=== PATIENT | female | born 1965 | race African-American/Black ===

== ENCOUNTER 2019-12-08 12:15 | Inpatient (IN) ==
[2019-12-08] MEDS ORDERED: HUMULIN R IV ONE (12:25)
[2019-12-08] MEDS ORDERED: NS 1,000 ML IV ONE ×2 (12:25→14:06)
[2019-12-08] MEDS ORDERED: HUMULIN R (PARKWAY) ONE (12:45)
[2019-12-08 12:48] LABS: BASO# 0.03 X1000 (0.0-0.2); BASO% 0.3 % (0.0-0.8); EOS# 0.17 X1000 (0.0-0.7); EOS% 1.7 % (0.0-10.0); HEMATOCRIT 33.8 % (37.0-47.0); HEMOGLOBIN 10.7 g/dL (12.0-16.0); IMM GRAN# 0.03 X1000 (0.0-0.04); IMM GRAN% 0.3 % (0.0-0.5); LYMPH# 3.48 X1000 (1.2-3.4); LYMPH% 35.7 % (20.5-51.1); MCHC 31.7 g/dL (33-37); MCV 85.1 FL (81-99); MONO# 1.39 X1000 (0.11-0.59); MONO% 14.3 % (1.7-9.3); MPV 11.1 FL (7.4-10.4); NEUT# 4.64 X1000 (1.4-6.5); NEUT% 47.7 % (42.2-75.2); PLT 285 X1000 (130-400); RBC 3.97 XMIL (4.2-5.4); RDW 14.7 % (11.5-14.5); WBC 9.74 X1000 (4.8-10.8)
--- NOTE | 2019-12-08 13:08 | Diag Imaging Result Doc PS360 ---
EXAM: CHEST-PORTABLE - 12/08/2019 HISTORY: SYNCOPE,VOMITING TECHNIQUE: Portable chest COMPARISON: 10/02/2019 FINDINGS: There is mild cardiomegaly similar to prior. Inspiration is mildly shallow. The lungs appear clear. There is no pleural effusion or pneumothorax identified. IMPRESSION: Mild cardiomegaly. Mildly shallow inspiration. No other evidence of acute disease. Electronically signed by Steve Pineda 12/08/2019 1:05 PM
[2019-12-08 13:18] LABS: INR 0.95; PROTIME 13.1 Seconds (11.0-16.0); PTT 35.5 Seconds (22.3-41.8)
[2019-12-08 13:22] LABS: ALBUMIN 3.6 g/dL (3.5-5.0); CALCIUM 8.9 mg/dL (8.8-10.2); CREATININE 1.4 mg/dL (0.5-0.9); POTASSIUM 3.8 mmol/L (3.5-5.1); TOTAL BILIRUBIN 0.3 mg/dL (0.20-1.00); TOTAL PROTEIN 7.1 g/dL (6.3-8.3)
[2019-12-08 14:24] LABS: URINE SOURCE CLEAN CATCH
[2019-12-08 14:34] LABS: BE -4.7 mmoll (-2.0-2.0); BLOOD TYPE VENOUS; HCO3-(ACT) 19.1 mmoll (22-27); PCO2(98.6) 62 mmHg (40-60); PO2(98.6) 22 mmHg (30-55); SAMPLE BLOOD; SAO2 37.1 % (40.0-85.0); pH(98.6) 7.21 (7.32-7.43)
[2019-12-08 14:58] LABS: UR AMPHETAMINES QUAL NONE DETECTED (NONE DETECT); UR BARBITUATES QUAL NONE DETECTED (NONE DETECT); UR BENZODIAZEPIN QUAL NONE DETECTED (NONE DETECT); UR CANNABINOIDS QUAL NONE DETECTED (NONE DETECT); UR COCAINE QUAL NONE DETECTED (NONE DETECT); UR METHADONE QUAL NONE DETECTED (NONE DETECT); UR METHAMPHETAMINE QUAL NONE DETECTED (NONE DETECT); UR OPIATES QUAL NONE DETECTED (NONE DETECT); UR OXYCODONE QUAL NONE DETECTED (NONE DETECT); UR PCP QUAL NONE DETECTED (NONE DETECT); UR PROPOXYPHENE QUAL NONE DETECTED (NONE DETECT); UR TCA QUAL NONE DETECTED (NONE DETECT)
--- NOTE | 2019-12-08 15:00 | Diag Imaging Result Doc PS360 ---
EXAM: CT HEAD W/O CONTRAST - 12/08/2019 HISTORY: syncope x 3 in 6 days. TECHNIQUE: CT head without contrast COMPARISON: 10/02/2019 FINDINGS: There is no evidence of intracranial hemorrhage, mass effect, midline shift, or hydrocephalus. There are mild chronic microvascular ischemic changes. There is no indication of recent infarct, although acute infarcts may not be immediately visible. There are atherosclerotic calcifications noted at the base of the brain. There is no evidence of skull fracture. Visualized portions of paranasal sinuses and mastoid air cells appear clear. IMPRESSION: No visible acute intracranial abnormality. No hemorrhage or mass effect. This exam was performed using automated exposure control, adjustment of mA or kV according to patient size, and/or use of iterative reconstruction technique. Electronically signed by Steve Pineda 12/08/2019 2:57 PM
[2019-12-08] MEDS ORDERED: APRESOLINE IV ONE ×2 (15:17→18:52)
[2019-12-08 15:18] LABS: BILIRUBIN URINE NEGATIVE (NEGATIVE); BLOOD URINE TRACE (NEGATIVE); COLOR YELLOW; GLUCOSE URINE >1000 mg/dL (NEGATIVE); KETONE URINE NEGATIVE (NEGATIVE); LEUKOCYTES URINE NEGATIVE (NEGATIVE); NITRITE URINE NEGATIVE (NEGATIVE); PH URINE 6.5; PROTEIN URINE 200 mg/dL (NEGATIVE); SP GRAVITY URINE 1.013; TURBIDITY URINE HAZY (CLEAR); UROBILINOGEN URINE NORMAL (NORMAL)
[2019-12-08 15:28] LABS: UR EPITHELIAL CELLS >10 /HPF (<10); URINE BACTERIA 2+ /HPF; URINE CRYSTALS URIC ACID PRESENT
[2019-12-08 15:30] LABS: URINE CASTS EPITHELIAL PRESENT; URINE RBC <10 /HPF (<10); URINE WBC <10 /HPF (<10); URINE YEAST NONE SEEN
--- NOTE | 2019-12-08 15:41 | PROVIDER DOCUMENTATION ---
This chart was entered by Marcelina Duke Scribe, acting as scribe for Arpit Lockett MD. HPI-General Adult - General Chief Complaint: Syncope Stated Complaint: confusion, syncope, HTN, hyperglycemia, vomiting Time Seen by Provider: 12/08/19 12:17 Source: patient, EMS Allergies/Adverse Reactions: Patient Allergies Allergy/AdvReac Type Severity Reaction Status Date / Time promethazine HCl * Allergy Unknown Verified 12/08/19 14:49 [From Phenergan] Home Medications: Home Medication List Medication Instructions Recorded Confirmed Last Taken Type Albuterol [Albuterol Neb] 1 vial INH Q6HR PRN 12/08/19 12/08/19 Unknown History Baclofen [Lioresal] 1 tab PO QHS 12/08/19 12/08/19 Unknown History Furosemide [Lasix] 1 tab PO DAILY 12/08/19 12/08/19 Unknown History Insulin NPH Hum/Reg Insulin Hm 1 unit SQ DIRECTED 12/08/19 12/08/19 Unknown History [Novolin 70-30 100 Unit/ml Vial] Lisinopril 1 tab PO DAILY 12/08/19 12/08/19 Unknown History Metoprolol [Lopressor] 1 tab PO DAILY 12/08/19 12/08/19 Unknown History Pregabalin 1 - 2 cap PO QHS 12/08/19 12/08/19 Unknown History - History of Present Illness -Gen Adult Nature of Presenting Problems: 54 y/o female with history of diabetes type II, hypertension, and CHF, presents to the ED via EMS with confusion, syncope, and hyperglycemia while at [facility]. EMS states blood sugar 477 and the patient began vomiting while being put on the stretcher and was given Zofran. EMS also states the patient was throwing her emesis around the truck and urinated on the stretcher en route. faMILY MEMBERS LATER TELL ME THIS IS 3RD WITNESS SYNCOPE IN 6 DAYS. PT ACTING NL AND AT [facility] BEFORE [facility]. Location of Pain/Injury: reports: generalized Onset/Duration: reports: just prior to arrival Timing: reports: still present Context/Activities at Onset: reports: light activity Associated Symptoms: reports: syncope, vomiting, other (confusion) Similar Symptoms Previously?: No Recently seen or treated by another doctor?: No Review of Systems - Adult - REVIEW OF SYSTEMS - ADULT Constitutional: denies: chills, fever, weight loss Eyes: reports: no symptoms reported Ears, Nose, Mouth & Throat: reports: no symptoms reported Cardiovascular: reports: no symptoms reported Respiratory: reports: no symptoms reported Gastrointestinal: reports: vomiting. denies: diarrhea, nausea Genitourinary: denies: dysuria, discharge, frequency Musculoskeletal: reports: no symptoms reported Integumentary: reports: no symptoms reported Neurological: reports: syncope, other (confusion). denies: slurred speech Psychiatric: reports: no symptoms reported Endocrine: reports: no symptoms reported Hematologic/Lymphatic: reports: no symptoms reported Allergic/Immunologic: reports: no symptoms reported All Other Systems: Reviewed and Negative Past History - Adult - PAST MEDICAL HISTORY-ADULT Review of Records: reports: Nursing Assessment Review, Medications Reviewed Major Childhood Illnesses: reports: denies history Cardiovascular: reports: CHF, HTN, hyperlipidemia, other (enlarged heart) Respiratory: reports: asthma, COPD Gastrointestinal: reports: GERD Obstetrical/Gynecological: reports: denies history Genitourinary: reports: denies history Musculoskeletal: reports: denies history Neurological: reports: denies history Endocrine/Immune: reports: Diabetes Other Conditions: reports: MRSA - PRIOR SURGERIES/PROCEDURES Surgical/Procedure History: reports: BTL, - PRIOR HOSPITALIZATIONS Prior Hospitalizations: reports: none - IMMUNIZATION STATUS Childhood Immunizations: See Nurse Assessment Flu Vaccine: See Nurse Assessment - FAMILY HISTORY Family History: reviewed, not pertinent - SOCIAL HISTORY Smoking: other (former smoker) Physical Exam-General - PHYSICAL EXAM-ADULT Initial Vital Signs Reviewed: Yes - CONSTITUTIONAL General Appearance: slow to respond - EYES Eyes: PERRL/EOMI - HEAD, EARS, NOSE, MOUTH & THROAT HENMT: normocephalic/atraumatic, moist mucous membranes - NECK Neck: full range of motion, supple - RESPIRATORY Respiratory: lungs clear, normal breath sounds. negative: accessory muscle use, rales, rhonchi, wheezing - CARDIOVASCULAR Cardiovascular: regular rate, rhythm, no gallop, no JVD, no murmur - GASTROINTESTINAL (ABDOMEN) Abdominal Exam: non tender, soft - MUSCULOSKELETAL Back Exam: normal inspection, no CVA tenderness, no vertebral tenderness - SKIN Integumentary: normal color, normal turgor, warm/dry - NEUROLOGIC Neurologic: marine biologist II-XII nml as tested, grossly normal, no motor/sensory deficits. negative: facial droop, focal weakness - PSYCHIATRIC Psych/Mental Status: other (ON INITIAL EXAM PT NEARLY OBTUNDED AND SLOW TO RESPOND BUT NOT COMBATIVE HERE HAD BEEN IN AMBULANCE. WITHIN 10 MINUTES , ABLE TO ANSWER A FEW QWUESTIONS AND COOPERATE WITH DONNING HER GOWN, WITHIN 45 MIN O X 3 AND AT HER MENTAL BASELINE. NEVER ANY FOCAL WEAKNESS OBSERVED.) Progress - PLAN OF CARE/RESULTS Progress/Plan/Lab Results: 1319: Lab called with lactic acid 4.7 as well as other critical abnormal labs. Result Diagrams: 12/08/19 12:35 12/08/19 12:35 - REASSESSMENT Reassessment #1 Time Reassessed: 14:04 (Family states the patient has had multiple recent falls including Monday (7 days ago) and then again on Monday (2 days ago) as well as today) Status: improving Reassessment Comment: The patient seems more alert. - EKG 1 Time of EKG reading by physician:: 14:26 EKG Read and Signed by:: Arpit Lockett EKG Interpretation (*Must complete 3 of following elements*): Abnormal Rate: 51 Rhythm: sinus bradycardia Treynor: left Comments: nonspecific T wave abnormality - XRAY 1 XRAY Study: Chest (EXAM: CHEST-PORTABLE - 12/08/2019 HISTORY: SYNCOPE,VOMITING TECHNIQUE: Portable chest COMPARISON: 10/02/2019 FINDINGS: There is mild cardiomegaly similar to prior. Inspiration is mildly shallow. The lungs appear clear. There is no pleural effusion or pneumothorax identified. IMPRESSION: Mild cardiomegaly. Mildly shallow inspiration. No other evidence of acute disease. Electronically signed by Steve Pineda 12/08/2019 1:05 PM) - CONSULTS/PCP/HOSPITALIST Notification #1 *Consult/PCP/Hospitalist*: DR ISAACS Time Discussed: 15:21 Consult Disposition: Admit Departure - Departure Date of Disposition Decision: 12/08/19 Time of Disposition Decision: 15:22 DIAGNOSIS: Syncope and collapse, DKA (diabetic ketoacidosis), Hypertension, AMS (altered mental status) Disposition: ADMITTED INPATIENT 09 Certified Medical Emergency: Emergent Condition: Fair Referrals and Follow-Ups: Eli Magallon CRNP [Primary Care Provider] - - Critical Care Note This patient required my direct & personal management of CC.: Yes Total Time (mins): 30 Critical Care Statement: This patient required my direct personal management to treat or rule out processes, the absence of which, could potentiallly result in sudden, clinically significant life or limb threatening deterioration. Attestation - Physician/ MITRA Attestation The physician spent face to face time with patient:: Yes Advanced Practice Provider documentation review:: Supervising physician onsite and consulted in the evaluation and care of this patient. The physician did have a face to face encounter with the patient. This chart was documented by the indicated scribe, (Marcelina Duke, Collin) and accurately reflects the services I performed and decisions made by me, Arpit Lockett MD, as attested by the provider's signature.
--- NOTE | 2019-12-08 16:56 | HISTORY AND PHYSICAL ---
PRIMARY CARE PHYSICIAN: SAHIL Mckinley. CHIEF COMPLAINT: Syncopal episode x3 over the past six days. The last one this morning during [facility]. HISTORY OF PRESENTING ILLNESS: This is a 54-year-old female who presents with increased confusion after a syncopal episode at [employer] this morning. States that she has had three total over the past six days. She had an elevated blood sugar when she arrived of 477 and states that she did not take her insulin sliding scale as prescribed. These syncopal episodes have been witnessed by family members. When she arrived, she had a blood pressure of 191/111, saturating 89% on room air. Her blood sugar was 414. Her creatinine was 1.4. Plasma lactate was 4.7. Urinalysis negative. Acetone level negative. Urine drug screen negative. Head CT showed no visible acute intracranial abnormality. No hemorrhage or mass effect. Chest x-ray showed mild cardiomegaly, but no other evidence of acute disease. So, she will be admitted for further evaluation and treatment. PAST MEDICAL HISTORY: Diabetes type 2, hypertension, CHF, hyperlipidemia, COPD, GERD. PAST SURGICAL HISTORY: and bilateral tubal ligation. FAMILY HISTORY: Reviewed and noncontributory. SOCIAL HISTORY: She is a former smoker. Denies any tobacco, alcohol or illicit drug use. ALLERGIES: Promethazine. HOME MEDICATIONS: She takes albuterol nebulizers every 6 hours p.r.n. Lioresal 10 mg one p.o. at bedtime, Lasix 40 mg p.o. daily, Novolin 70/30 per sliding scale, lisinopril 40 mg p.o. daily, metoprolol 50 mg p.o. daily, and Pregabalin 50 mg one two capsules by mouth at bedtime. We will give her the one capsule at bedtime. LABORATORY DATA: Showed a white blood cell count of 9.74, hemoglobin 10.7, hematocrit 33.8, platelets 285,000. PT/INR of 13.1 and 0.95. Venous ABG showed a pH of 7.21, pCO2 62, PO2 22, bicarb 19.1. Sodium 140, potassium 3.8, chloride 102, CO2 20, BUN of 20, creatinine 1.4, glucose 414, AST of 86, ALT 66, alkaline phosphate 189, plasma lactate of 4.7, free T4 of 1.16. Urinalysis was negative except for 2+ bacteria. Acetone was negative. Urine drug screen showed none detected. IMAGING: Head CT showed no visible acute intracranial abnormality. No hemorrhage or mass effect. Chest x-ray showed mild cardiomegaly. No other evidence of acute disease. REVIEW OF SYSTEMS: She denied any fever, chills, blurred vision. She did have some dizziness, confusion. Denied any chest pain, coughing, shortness of breath. Denied any abdominal pain, constipation, diarrhea, nausea, but she did vomit once in route and denies any burning or hurting with urination. PHYSICAL EXAMINATION: VITAL SIGNS: On arrival she had a temperature of 97.8 degrees, pulse 58, respirations 17, blood pressure 119/111, saturating 89% on room air. Currently saturating 97% on 2 L. GENERAL: This is a 54-year-old female who is lying in the bed and answers questions appropriately. HENT: Normocephalic, atraumatic. Normal ENT inspection. Oropharynx and nares are clear. EYES: Pupils are equal, round, reactive to light and accommodation. Extraocular movements are intact. NECK: Normal inspection normal range of motion. LUNGS: Clear to auscultation bilaterally with equal lung expansion, chest wall movement. HEART: Regular rate and rhythm. No murmurs, rubs, or gallops. ABDOMEN: Soft, nontender, nondistended. Bowel sounds are present x4 quadrants. MUSCULOSKELETAL: She has 5/5 strength x4 extremities. NEUROLOGICAL: The cranial nerves XX-XII appear grossly intact. ASSESSMENT: 1. Syncope. 2. Acute kidney injury. 3. Diabetes type 2, uncontrolled with hyperglycemia. 4. Hypertension. 5. Some mild bradycardia. 6. Elevated liver function tests. PLAN: She will be admitted to the medical unit. Placed on telemetry and O2 per protocol. Pattern blood sugars, sliding scale insulin, and diabetic diet. We will do a carotid ultrasound and an echocardiogram in the a.m. Place on normal saline at 75 mL an hour. We will hold her Lasix and metoprolol. We will check a hemoglobin A1c. We will do serial lactate per protocol. Blood culture and urine culture are pending. Place on Lovenox 40 mg subcutaneously every 24 hours. Will check a hemoglobin A1c and further orders after seen by attending. Dictated by SAHIL Curtis for Jez Rivers MD cc: SAHIL Curtis MD Stephanie Weems, CRNP
[2019-12-08] MEDS: NS 1,000 ML IV SCH (17:27)
[2019-12-08] MEDS: LOVENOX SUBQ SCH (17:27)
[2019-12-08 17:33] LABS: HEMOGLOBIN A1C 11.6 % (4.8-6.0)
--- NOTE | 2019-12-08 17:55 | EKG Report ---
Test Performed on : 12/08/2019 2:23:17 PM Test Reason : SYNCOPE Blood Pressure : / mmHG Vent. Rate : 051 BPM Atrial Rate : 051 BPM P-R Int : 194 ms QRS Dur : 082 ms QT Int : 474 ms P-R-T Axes : 032 -35 064 degrees QTc Int : 436 ms Sinus bradycardia. Left axis deviation Nonspecific T wave abnormality Abnormal ECG When compared with ECG of 02-OCT-2019 22:58, Nonspecific T wave abnormality now evident in Inferior leads QT has shortened Unconfirmed Result
--- NOTE | 2019-12-08 18:23 | HISTORY AND PHYSICAL ---
ADDENDUM: Patient seen and examined by myself. Full note dictated and discussed with nurse practitioner. Patient had a syncopal episode while at [facility]. She notes that she does not check her blood pressures at home which are currently running 190s and 200 systolic. She states she checks her blood sugar at home is typically running low. When asked what they means she says 75 to 80. Oddly enough her A1c is 11.1. She is currently awake, alert. She is lying in the bed. She is in no distress. We are going to admit her to the hospital and follow her symptoms. We will follow her blood sugars. Place her on blood pressure medications. Further orders as needed. If her blood pressures do not improve she may need to be transferred to a monitored bed. cc: Jez Rivers MD
[2019-12-08] MEDS: LYRICA PO SCH (20:53)
[2019-12-08] MEDS: LIORESAL PO SCH (20:53)
[2019-12-08] MEDS: HUMALOG (PARKWAY) SUBQ SCH (20:53)
[2019-12-08] MEDS: TYLENOL PO PRN (23:13)
[2019-12-09] MEDS: HUMALOG (PARKWAY) SUBQ SCH ×4 (06:03→20:41)
[2019-12-09] MEDS: NS 1,000 ML IV SCH (06:43)
[2019-12-09] MEDS ORDERED: PRINIVIL PO SCH (09:00)
--- NOTE | 2019-12-09 12:19 | Vascular Study Report ---
EXAM: Carotid Ultrasound HISTORY: syncope TECHNIQUE: Grayscale, duplex, and color Doppler evaluation was performed of the carotid arteries bilaterally. Standard protocol. COMPARISON: None. FINDINGS: There is mild bilateral atherosclerotic plaque. There are no velocity elevations to suggest hemodynamically significant carotid artery stenosis. Maximal systolic velocity right internal carotid artery is 98 cm/s. Maximal left internal carotid artery systolic velocity is 60 cm/s. ICA/CCA ratios are within normal limits. Bilateral vertebral arterial flow is antegrade. IMPRESSION: No evidence for hemodynamically significant carotid artery stenosis. Estimated stenosis is less than 50% bilaterally. Electronically signed by Clarisse Fraire 12/09/2019 12:16 PM
[2019-12-09] MEDS: ZOFRAN IV PRN ×2 (13:50→21:47)
[2019-12-09] MEDS: ALBUTEROL NEB INH PRN (13:58)
[2019-12-09 17:11] LABS: BE -3.8 mmoll (-3.0-3.0); BLOOD TYPE ARTERIAL; HCO3-(ACT) 21.9 mmoll (20.0-26.0); METHB 1.9 % (0.0-1.5); O2(CT) 13.8 mL/dL (15.0-23.0); O2HB 95.1 % (95.0-99.0); PCO2(98.6) 39 mmHg (35-45); PO2(98.6) 102 mmHg (60-100); SAMPLE BLOOD; SAO2 98.5 % (95.0-100.0); THB 10.2 g/dL (11.5-17.4); pH(98.6) 7.35 (7.35-7.45)
[2019-12-09 17:16] LABS: ALLEN TEST YES; MODALITY CANNULA
[2019-12-09 17:17] LABS: BASO# 0.03 X1000 (0.0-0.2); BASO% 0.2 % (0.0-0.8); EOS# 0.04 X1000 (0.0-0.7); EOS% 0.3 % (0.0-10.0); HEMATOCRIT 30.8 % (37.0-47.0); HEMOGLOBIN 9.5 g/dL (12.0-16.0); IMM GRAN# 0.07 X1000 (0.0-0.04); IMM GRAN% 0.6 % (0.0-0.5); LYMPH# 2.27 X1000 (1.2-3.4); LYMPH% 18.2 % (20.5-51.1); MCH 26.2 PG (27-31); MCHC 30.8 g/dL (33-37); MCV 85.1 FL (81-99); MONO# 1.71 X1000 (0.11-0.59); MONO% 13.7 % (1.7-9.3); MPV 11.1 FL (7.4-10.4); NEUT# 8.36 X1000 (1.4-6.5); PLT 254 X1000 (130-400); RBC 3.62 XMIL (4.2-5.4); WBC 12.48 X1000 (4.8-10.8)
[2019-12-09] MEDS: LOVENOX SUBQ SCH (17:24)
[2019-12-09] MEDS ORDERED: APRESOLINE ONE (17:30)
[2019-12-09 17:33] LABS: CALCIUM 8.4 mg/dL (8.8-10.2); CREATININE 1.2 mg/dL (0.5-0.9); PHOSPHORUS 2.9 mg/dL (2.7-4.5); POTASSIUM 3.8 mmol/L (3.5-5.1)
[2019-12-09] MEDS ORDERED: APRESOLINE IV PRN (17:34)
[2019-12-09] MEDS: NORVASC PO SCH ×2 (17:41→20:41)
[2019-12-09] MEDS ORDERED: APRESOLINE PO SCH (18:00)
--- NOTE | 2019-12-09 18:30 | PROGRESS NOTE ---
DATE: 12/09/2019 SUBJECTIVE: Patient reports feeling fine. Denies any fever or chills. Patient reports having a good appetite. OBJECTIVE: Vital Signs: Temperature 98.3 degrees, heart rate 73, respiratory rate 22, blood pressure 199/89, O2 saturation 100% on 2 L nasal cannula. General Examination: This is a chronically ill-looking, 54-year-old female lying in bed, in no acute distress. Cardiovascular Exam: S1, S2 heard. No murmurs, gallops, or rubs. Regular rate and rhythm. Respiratory exam: Clear bilaterally to auscultation. No work of breathing or using accessory muscles. Abdomen: Soft, nontender to palpation. Bowel sounds present. No organomegaly. Extremities: No clubbing, cyanosis, or edema. Peripheral pulses present in both legs. Neurological: Patient alert and oriented x3. Moves all 4 extremities. LABORATORY DATA: Pending at time of dictation. Blood sugar from yesterday was 444 with hemoglobin A1c 11.6. ASSESSMENT: 1. Syncope. 2. Acute kidney injury. 3. Diabetes mellitus type 2. 4. Hypertension. 5. Elevated liver function tests. PLAN: At this point, patient is being worked up for syncope. So far the carotid ultrasound is completely normal. An echocardiogram has been done but has not been read yet. We will continue to monitor this patient closely regarding this condition. Patient has a poorly controlled diabetes mellitus with very elevated hemoglobin A1c. We are going to start this patient on Lantus and continue with sliding scale insulin and Accu-Chek before meals and also at bedtime. Venous blood gases show metabolic acidosis so at this point we are going to check an ABG today, and we will go from there. For hypertension that is also very poorly controlled, we will start amlodipine 5 mg p.o. twice daily and also metoprolol as well. The patient has been on lisinopril, but we will hold it because of this acute kidney injury so we will continue to monitor this patient closely. We will optimize diabetes control. cc: Milton Krause MD MTDD
[2019-12-09] MEDS: LOPRESSOR PO SCH (19:44)
[2019-12-09] MEDS: OCUFLOX 0.3% OPH SOLUTION BOTH EYES SCH (20:40)
[2019-12-09] MEDS: LYRICA PO SCH (20:41)
[2019-12-09] MEDS: LANTUS INSULIN SUBQ SCH (20:41)
[2019-12-09] MEDS: LIORESAL PO SCH (20:41)
--- NOTE | 2019-12-09 21:15 | ECHO REPORT ---
ORDER DATE: 12/09/2019 MEASUREMENTS: Septal thickness 1.2, left ventricular internal diameter diastole 4.8, posterior wall thickness 1.1, left ventricular internal diameter systole 3.0, aortic root 3.5, left atrium 3.7. SUMMARY: 1. Adequate quality study. 2. Aortic valve is trileaflet and opens normally on 2-dimensional images. Peak gradient across aortic valve is approximately 10 mmHg. Moderate mitral annular calcification is demonstrated. There is very mild mitral regurgitation. Tricuspid and pulmonic valves are without evidence of structural abnormality with mild tricuspid regurgitation and mild pulmonic insufficiency. The estimated systolic PA pressure by Doppler is 70 mmHg suggesting moderate to severe pulmonary hypertension. Aortic root is normal in size. 3. Normal left chamber size with mild concentric left hypertrophy suggested. Estimated left ejection fraction appears to be approximately 55%. No regional wall motion abnormality can be appreciated. Doppler demonstrates pseudonormalization of mitral inflow suggesting grade 2 left ventricular diastolic dysfunction. Left atrium is upper normal in size. The right atrium, right ventricle are normal in size with grossly preserved right ventricular systolic function. 4. No pericardial effusion. 5. Appearance of inferior vena cava suggests elevated central venous pressure. CONCLUSIONS: 1. Moderate mitral annular calcification with very mild mitral regurgitation. 2. Mild tricuspid regurgitation with estimated systolic PA pressure by Doppler 70 mmHg. 3. Elevated central venous pressure suggested. 4. Mild concentric left hypertrophy with estimated left ejection fraction approximately 55%. 5. Doppler suggests grade 2 left ventricular diastolic dysfunction. cc: MD Zena Gudino CRNP
[2019-12-09] MEDS: TYLENOL PO PRN (23:15)
[2019-12-10] MEDS: LOPRESSOR PO SCH ×4 (01:32→20:17)
[2019-12-10] MEDS: HUMALOG (PARKWAY) SUBQ SCH ×4 (06:02→20:24)
[2019-12-10 06:06] LABS: BE -1.7 mmoll (-3.0-3.0); BLOOD TYPE ARTERIAL; HCO3-(ACT) 23.6 mmoll (20.0-26.0); METHB 1.6 % (0.0-1.5); O2(CT) 13.5 mL/dL (15.0-23.0); O2HB 95.4 % (95.0-99.0); PCO2(98.6) 38 mmHg (35-45); PO2(98.6) 108 mmHg (60-100); SAMPLE BLOOD; SAO2 98.7 % (95.0-100.0); THB 9.9 g/dL (11.5-17.4); pH(98.6) 7.39 (7.35-7.45)
[2019-12-10 06:09] LABS: ALLEN TEST YES; MODALITY CANNULA
[2019-12-10 07:26] LABS: BASO# 0.03 X1000 (0.0-0.2); BASO% 0.3 % (0.0-0.8); EOS# 0.16 X1000 (0.0-0.7); EOS% 1.4 % (0.0-10.0); HEMATOCRIT 29.6 % (37.0-47.0); IMM GRAN# 0.05 X1000 (0.0-0.04); IMM GRAN% 0.4 % (0.0-0.5); LYMPH# 4.32 X1000 (1.2-3.4); LYMPH% 37.3 % (20.5-51.1); MCH 25.9 PG (27-31); MCHC 30.4 g/dL (33-37); MCV 85.1 FL (81-99); MONO# 1.94 X1000 (0.11-0.59); MONO% 16.7 % (1.7-9.3); MPV 11.5 FL (7.4-10.4); NEUT# 5.09 X1000 (1.4-6.5); NEUT% 43.9 % (42.2-75.2); PLT 253 X1000 (130-400); RBC 3.48 XMIL (4.2-5.4); WBC 11.59 X1000 (4.8-10.8)
[2019-12-10 07:36] LABS: CALCIUM 8.4 mg/dL (8.8-10.2); CREATININE 1.2 mg/dL (0.5-0.9); PHOSPHORUS 3.1 mg/dL (2.7-4.5); POTASSIUM 3.5 mmol/L (3.5-5.1)
[2019-12-10] MEDS: NS 1,000 ML IV SCH ×2 (07:42→09:27)
[2019-12-10] MEDS: ALBUTEROL NEB INH PRN (07:47)
[2019-12-10] MEDS: LANTUS INSULIN SUBQ SCH ×2 (09:27→20:24)
[2019-12-10] MEDS: ASPIRIN EC PO SCH (09:27)
[2019-12-10] MEDS: ROCEPHIN 1 GM in NS 50 ML IV SCH (09:27)
[2019-12-10] MEDS: OCUFLOX 0.3% OPH SOLUTION BOTH EYES SCH (09:27)
[2019-12-10] MEDS: NORVASC PO SCH ×2 (09:27→20:17)
[2019-12-10] MEDS: PRED FORTE 1% OPH SUSPENSION BOTH EYES SCH ×3 (12:07→20:15)
[2019-12-10] MEDS: LOVENOX SUBQ SCH (18:03)
[2019-12-10] MEDS: LIORESAL PO SCH (20:17)
[2019-12-10] MEDS: LYRICA PO SCH (20:17)
--- NOTE | 2019-12-10 22:17 | PROGRESS NOTE ---
DATE: 12/10/2019 SUBJECTIVE: Patient has no new complaints. PHYSICAL: T-max 101.6, T current 99, pulse 57, respiratory 18, BP 154/70.General: Patient is awake, pleasant in no current respiratory distress. She is on oxygen. HEENT: Normocephalic. Neck: Supple. CV: Regular rate. Chest: Decreased but equal. Abdomen: Soft, nondistended. Extremities: Moves all extremities. ASSESSMENT: 1. Syncope. 2. Diabetes with home poor control A1c of 11.4. 3. Febrile illness. We are going to start on Rocephin. 4. Acute on chronic renal failure improved. PLAN: Will continue patient in the hospital, continue symptomatic control and will follow. cc: Jez Rivers MD
[2019-12-11] MEDS: NS 1,000 ML IV SCH ×2 (02:42→12:28)
[2019-12-11] MEDS: LOPRESSOR PO SCH ×4 (02:58→21:10)
[2019-12-11] MEDS: TYLENOL PO PRN ×2 (03:27→17:40)
[2019-12-11 06:31] LABS: BASO# 0.03 X1000 (0.0-0.2); BASO% 0.3 % (0.0-0.8); EOS# 0.22 X1000 (0.0-0.7); EOS% 2.2 % (0.0-10.0); HEMATOCRIT 28.7 % (37.0-47.0); HEMOGLOBIN 8.9 g/dL (12.0-16.0); IMM GRAN# 0.04 X1000 (0.0-0.04); IMM GRAN% 0.4 % (0.0-0.5); LYMPH# 2.65 X1000 (1.2-3.4); MCH 26.4 PG (27-31); MCV 85.2 FL (81-99); MONO# 1.73 X1000 (0.11-0.59); MPV 11.6 FL (7.4-10.4); NEUT# 5.53 X1000 (1.4-6.5); NEUT% 54.1 % (42.2-75.2); PLT 254 X1000 (130-400); RBC 3.37 XMIL (4.2-5.4)
[2019-12-11] MEDS: HUMALOG (PARKWAY) SUBQ SCH ×4 (06:43→21:09)
[2019-12-11 06:46] LABS: ALBUMIN 2.9 g/dL (3.5-5.0); CALCIUM 8.3 mg/dL (8.8-10.2); CREATININE 1.2 mg/dL (0.5-0.9); PHOSPHORUS 3.5 mg/dL (2.7-4.5); POTASSIUM 3.8 mmol/L (3.5-5.1)
--- NOTE | 2019-12-11 08:05 | Diag Imaging Result Doc PS360 ---
EXAM: CHEST-PORTABLE 12/11/2019 HISTORY: dyspnea TECHNIQUE: Erect AP portable at 0709 COMMENT: There is cardiomegaly. There is retrocardiac alveolar opacity which was not apparently present on 12/08/2019. IMPRESSION: Left lower lobe pneumonia. Electronically signed by Tim Almazan 12/11/2019 8:03 AM
[2019-12-11] MEDS: PRED FORTE 1% OPH SUSPENSION BOTH EYES SCH ×4 (08:37→21:10)
[2019-12-11] MEDS: ASPIRIN EC PO SCH (08:37)
[2019-12-11] MEDS: NORVASC PO SCH ×2 (08:37→21:10)
[2019-12-11] MEDS: ROCEPHIN 1 GM in NS 50 ML IV SCH (08:37)
[2019-12-11] MEDS: LOVENOX SUBQ SCH (17:40)
[2019-12-11] MEDS: LIORESAL PO SCH (21:10)
[2019-12-11] MEDS: LYRICA PO SCH (21:10)
--- NOTE | 2019-12-11 22:38 | PROGRESS NOTE ---
DATE: 12/11/2019 SUBJECTIVE: Patient has no complaints. States overall she is feeling better. PHYSICAL EXAMINATION: Vital Signs: Reviewed. She has been afebrile for 24 hours. The T current 98, pulse 57, BP 145/59, sat 97% on 2 L. General: Patient is pleasant. She is answering questions appropriately. HEENT: Normocephalic. Neck: Supple. Cardiovascular: Regular rate. Chest: Clear, no wheezing. Abdomen: Soft, nondistended. Extremities: Moves all extremities. ASSESSMENT: 1. Syncope. 2. Fever. 3. Diabetes with poor home control and A1c of 11.6. 4. Chronic kidney disease, stable. PLAN: We will continue patient on hospital continue Rocephin. We will follow her cultures. Follow her blood sugars. Further orders as needed. cc: Jez Rivers MD
[2019-12-12] MEDS: LOPRESSOR PO SCH ×4 (03:02→21:26)
[2019-12-12] MEDS: HUMALOG (PARKWAY) SUBQ SCH ×4 (06:04→21:26)
[2019-12-12 07:25] LABS: BASO# 0.04 X1000 (0.0-0.2); BASO% 0.4 % (0.0-0.8); EOS# 0.25 X1000 (0.0-0.7); EOS% 2.8 % (0.0-10.0); HEMATOCRIT 29.7 % (37.0-47.0); HEMOGLOBIN 9.1 g/dL (12.0-16.0); IMM GRAN# 0.03 X1000 (0.0-0.04); IMM GRAN% 0.3 % (0.0-0.5); MCH 26.1 PG (27-31); MCHC 30.6 g/dL (33-37); MCV 85.1 FL (81-99); MONO# 1.39 X1000 (0.11-0.59); MONO% 15.4 % (1.7-9.3); MPV 11.7 FL (7.4-10.4); NEUT# 4.44 X1000 (1.4-6.5); NEUT% 49.1 % (42.2-75.2); PLT 269 X1000 (130-400); RBC 3.49 XMIL (4.2-5.4); RDW 14.9 % (11.5-14.5); WBC 9.05 X1000 (4.8-10.8)
[2019-12-12 07:36] LABS: ALBUMIN 3.1 g/dL (3.5-5.0); CALCIUM 8.5 mg/dL (8.8-10.2); CREATININE 1.4 mg/dL (0.5-0.9); PHOSPHORUS 3.2 mg/dL (2.7-4.5)
[2019-12-12] MEDS: NS 1,000 ML IV SCH (07:45)
[2019-12-12] MEDS: ASPIRIN EC PO SCH (09:43)
[2019-12-12] MEDS: NORVASC PO SCH ×2 (09:43→21:26)
[2019-12-12] MEDS: ROCEPHIN 1 GM in NS 50 ML IV SCH (09:44)
[2019-12-12] MEDS: PRED FORTE 1% OPH SUSPENSION BOTH EYES SCH ×4 (09:44→21:28)
--- NOTE | 2019-12-12 10:21 | Diag Imaging Result Doc PS360 ---
EXAM: KUB ABDOMEN - 12/12/2019 HISTORY: abd pain/constipation? TECHNIQUE: AP spine abdomen COMPARISON: 02/02/2017 FINDINGS: There is a moderate amount of retained fecal debris in the colon suggesting constipation. The bowel gas pattern otherwise appears nonspecific and nonobstructive. There are multiple calcifications in the pelvis similar to prior, which likely relate to uterine fibroids. IMPRESSION: Apparent constipation. Nonspecific bowel gas pattern otherwise. Electronically signed by Steve Pineda 12/12/2019 10:18 AM
[2019-12-12] MEDS: LOVENOX SUBQ SCH (18:26)
[2019-12-12] MEDS: LYRICA PO SCH (21:26)
[2019-12-12] MEDS: LIORESAL PO SCH (21:26)
--- NOTE | 2019-12-12 21:31 | PROGRESS NOTE ---
DATE: 12/12/2019 SUBJECTIVE: Patient notes overall she is doing better. Denies fevers or chills. States cough and shortness of breath have improved. PHYSICAL EXAMINATION: Vital Signs: Temperature 98, pulse 59, respiratory rate 18, BP 168/80. General: Patient is pleasant, in no current respiratory distress. O2 saturations are improving. HEENT: Normocephalic. Neck: Supple. Cardiovascular: Regular rate. Chest: Clear. Abdomen: Soft. Extremities: Moves all extremities. ASSESSMENT: 1. Febrile illness, currently on Rocephin. 2. Leukocytosis, resolved. 3. Anemia of chronic disease. 4. Diabetes with poor home control with an A1c of 11.6. 5. Diastolic dysfunction. PLAN: We are going to continue to wean medications. We will saline lock. Follow blood pressures, and hopefully home soon. cc: Jez Rivers MD
[2019-12-12] MEDS: TYLENOL PO PRN (23:40)
[2019-12-13] MEDS: LOPRESSOR PO SCH ×2 (02:19→09:11)
[2019-12-13] MEDS: HUMALOG (PARKWAY) SUBQ SCH ×2 (06:24→12:30)
[2019-12-13] MEDS ORDERED: LINZESS PO ONE (06:57)
[2019-12-13 07:36] VITALS: BP 159/70
[2019-12-13] MEDS: ASPIRIN EC PO SCH (09:11)
[2019-12-13] MEDS: ROCEPHIN 1 GM in NS 50 ML IV SCH (09:11)
[2019-12-13] MEDS: NORVASC PO SCH (09:12)
[2019-12-13] MEDS: PRED FORTE 1% OPH SUSPENSION BOTH EYES SCH ×2 (09:18→12:51)
--- NOTE | 2019-12-13 22:09 | DISCHARGE SUMMARY ---
ADMISSION DATE: 12/08/2019 DISCHARGE DATE: 12/13/2019 DIAGNOSES: 1. Febrile illness. 2. Leukocytosis, resolved. 3. Anemia of chronic disease. 4. Diabetes with poor home control with an A1c of 11.6. 5. Diastolic dysfunction. 6. Syncope, resolved. 7. Acute kidney injury overlying chronic kidney disease, resolved. DIAGNOSTICS: 1. Chest x-ray revealed mild cardiomegaly, mildly shallow inspiration. No other evidence of acute disease. 2. Echocardiogram revealed moderate concentric left hypertrophy with estimated left ejection fraction approximately 55%. Doppler suggests grade 2 left ventricular diastolic dysfunction. 3. Bilateral carotid Doppler. No evidence for hemodynamically significant cord carotid artery stenosis. Estimated stenosis is less than 50% bilateral. 4. Abdominal x-ray reveals apparent constipation, nonspecific bowel gas pattern. 5. Microbiology blood cultures x2 revealed no growth after 48 hours. 6. Urine culture revealed mixed ashley. 7. Sputum culture revealed normal ashley. HOSPITAL COURSE: Ms. Reyes presented to the emergency room after having 3 syncopal episodes over the prior 6 days. She was noted to have a blood sugar of 477 on arrival with blood pressure of 191/111 and an O2 saturation of 89%. Echocardiogram and carotid Doppler as stated above. She had no further syncopal episodes. She had no dizzy episodes. Hemoglobin A1c was noted to be 11.6. We did discuss with the patient the importance of better control with more compliance to diet and medication regimen to which she voiced understanding. O2 saturation was 89% on arrival to the emergency room. She was given supplemental oxygen, room air sat 93 to 94%. In regards to her blood pressure, she ran in the 190s to 200s over 100 to 110 on arrival, she was prescribed metoprolol 50 mg p.o. b.i.d. as well as lisinopril 40 mg daily at home. Due to her acute kidney injury, we held her lisinopril. She was placed on Norvasc 5 mg b.i.d. along with her metoprolol, and blood pressures have been in the 150s-160s over 70s to 80s. Creatinine stayed at 1.2 to 1.4 and in reviewing her past levels, she has been 1.2 throughout 2019. We will hold her lisinopril and she will be discharged on Norvasc and metoprolol. This can be followed up by her primary care physician. DISCHARGE VITAL SIGNS: Blood pressure is 159/70 with a heart rate of 53, respirations 18, temperature is 97.3 degrees with room air saturations 93-94%. DISCHARGE PHYSICAL EXAMINATION: Cardiovascular: Regular rate and rhythm. She is bradycardic. S1 and S2 are appreciated. No murmur. She denies any calf tenderness with peripheral pulses palpable x4 extremities. Pulmonary: Breath sounds are clear with no increased work of breathing noted. Chest rise falls symmetric to respiration. Chest wall is nontender to palpation. Gastrointestinal: Abdomen is soft, nontender, nondistended with bowel sounds in all 4 quadrants. Neurologic: She is alert and oriented x3. Skin: Is warm and dry. FOLLOW-UP: Eli Magallon, her primary care provider. I have asked the nursing staff to make an appointment within the week. At this time she will need a BMP drawn to check her renal function as well as a blood pressure and heart rate check for further medication management. She has been instructed to call to be seen sooner or return to the ER for any syncope, dizziness, any chest pain or palpitations, shortness of breath, cough, temperature greater than 101, any chills, any nausea, vomiting, diarrhea, constipation, black or bloody vomitus or stools, or for any questions or concerns that she may have. She is being discharged home in stable condition with family members. TIME SPENT: This is a greater than 30 minute discharge. Dictated by SAHIL Crandall for Jez Rivers MD cc: SAHIL Crandall MD Stephanie Weems, CRNP
--- NOTE | 2019-12-14 02:45 | DISCHARGE SUMMARY ---
ADMISSION DATE: 12/08/2019 DISCHARGE DATE: 12/13/2019 ADDENDUM: Patient seen and examined by myself. Full note dictated and discussed with nurse practitioner. On discharge, patient presented to the hospital with an A1c of 11.6. He is having fever. Echo demonstrated diastolic dysfunction. Creatinine was minimally elevated, currently improved at 1.2. She was admitted for syncope. Thankfully, this has resolved. She did have some constipation that was improved on discharge. Please see full note. cc: Jez Rivers MD
== END 2019-12-13 14:26 | disposition home or self-care (01) | DRG 683 ==
LOC: P.ED 12:15 → SUATTDRO 17:04 → P.EDIPHOLD 17:04
PROVIDERS: ATTEND Family Medicine